=== PATIENT | male | born 1965 | race Caucasian/White ===

== ENCOUNTER 2020-04-22 12:58 | Emergency (ER) | payer OTHER ==
[~2020-04-22] VITALS: Ht 193 cm; Wt 99.8 kg
[2020-04-22] MEDS ORDERED: AUGMENTIN 875-1 EACH PO (14:31)
== END 2020-04-22 14:55 | disposition home or self-care (01) ==
LOC: ED 12:58
DX: S61.451A Open bite of right hand, initial encounter (principal); W50.3XXA Accidental bite by another person, initial encounter
CPT/HCPCS: 90471; 90715; 99283-25